=== PATIENT | male | born 2000 | race Caucasian/White ===

== ENCOUNTER 2023-05-01 16:13 | Emergency (ER) | payer MEDICAID ==
[~2023-05-01] VITALS: Ht 182.9 cm; Wt 90.0 kg
[2023-05-01 16:21] VITALS: BP 146/83; PULSE 114; RESP 16; TEMP 98.2; O2SAT 98
[2023-05-01 16:40] VITALS: TEMP 98.2
[2023-05-01 16:42] VITALS: O2SAT 98
[2023-05-01 17:30] LABS: BASOPHILS % (AUTO) 0.1 % (0.0-2.0); EOSINOPHILS # (AUTO) 0.1 K/uL (0-0.4); EOSINOPHILS % (AUTO) 1.7 % (0.0-4.0); HEMATOCRIT 45.2 % (36-52); HEMOGLOBIN 15.8 g/dL (12.0-18.0); LYMPHOCYTES # (AUTO) 0.7 K/uL (2.0-11.5); LYMPHOCYTES % (AUTO) 10.1 % (20.5-51.1); MEAN CORPUSCULAR HEMOGLOBIN 30 pg (27-31); MEAN CORPUSCULAR HGB CONC 35 g/dL (33-37); MEAN CORPUSCULAR VOLUME 86.4 fL (80-94); MONOCYTES # (AUTO) 0.5 K/uL (0.8-1.0); MONOCYTES % (AUTO) 6.6 % (1.7-9.3); NEUTROPHILS # (AUTO) 6.1 K/uL (1.8-7.7); NEUTROPHILS % (AUTO) 81.5 % (42.2-75.2); PLATELET COUNT (AUTO) 272 K/uL (140-450); RED BLOOD CELL COUNT(AUTO) 5.23 MIL/uL (4.20-6.10); RED CELL DISTRIBUTION WIDTH 12.5 % (11.6-13.7); WHITE BLOOD COUNT (AUTO) 7.4 K/uL (4.5-11.0)
[2023-05-01 17:41] LABS: CALCIUM 8.5 mg/dL (8.5-10.1); CARBON DIOXIDE 30.4 mmol/L (21-32); CREATININE 1.1 mg/dL (0.6-1.3); POTASSIUM 3.4 mmol/L (3.5-5.1)
[2023-05-01] MEDS: ALUMINUM HYD/MAG/SIMETHICONE 30 ML UDC PO ONE (17:51)
[2023-05-01] MEDS: ONDANSETRON 4 MG ODT PO ONE (17:58)
[2023-05-01 18:04] LABS: ALANINE AMINOTRANSFERASE 44 U/L (12-78); ALBUMIN 4.1 g/dL (3.4-5.0); ALKALINE PHOSPHATASE 86 U/L (50-136); ASPARTATE AMINOTRANSFERASE 19 U/L (15-37); BILIRUBIN,DIRECT 0.1 mg/dL (0.0-0.3); LIPASE 18 U/L (16-77); MAGNESIUM 1.7 mg/dL (1.8-2.4); PHOSPHORUS 2.2 mg/dL (2.5-4.9); TOTAL BILIRUBIN 0.4 mg/dL (0.0-1.0); TOTAL PROTEIN, SERUM 8.9 g/dL (6.4-8.2)
[2023-05-01 18:30] LABS: AMPHETAMINE, URINE NEGATIVE ng/ml (NEG <=1000); BARBITURATE, URINE NEGATIVE ng/ml (NEG <=200); BENZODIAZEPINE, URINE NEGATIVE ng/mL (NEG <=200); CANNABINOID, URINE NEGATIVE ng/mL (NEG <=50); COCAINE, URINE NEGATIVE ng/mL (NEG <=300); OPIATE, URINE NEGATIVE ng/mL (NEG <=2000); PHENCYCLIDINE SCREEN,URINE NEGATIVE ng/mL (NEG <=25)
[2023-05-01] MEDS: SODIUM PHOS / POTASSIUM PHOS 1 PKT PDR PO ONE (18:59)
[2023-05-01] MEDS: POTASSIUM CHLORIDE 10 MEQ TABER PO ONE (19:01)
[2023-05-01] MEDS: MAGNESIUM CHLORIDE 64 MG TABEC PO SCH (19:02)
[2023-05-01] MEDS ORDERED: ATA25 PO (19:33)
[2023-05-01 20:20] VITALS: BP 124/75; PULSE 103; RESP 18; O2SAT 96
== END 2023-05-01 20:00 | disposition home or self-care (01) ==
LOC: MED 16:13
DX: E87.6 Hypokalemia (principal); F41.9 Anxiety disorder, unspecified; E83.39 Other disorders of phosphorus metabolism; E83.42 Hypomagnesemia; Z79.899 Other long term (current) drug therapy
CPT/HCPCS: 36415; 70450; 71045; 80048; 80076; 80305; 82948; 83690; 83735; 84100; 84484; 85025; 93005; 99285; Q0162